=== PATIENT | male | born 1955 | race Caucasian/White ===

== ENCOUNTER → 2016-12-09 | Outpatient (CLI) | payer MEDICARE, MEDICAID ==
[~2016-12-09] MED LIST: ASPIRIN325 MG PO; COZAAR50 MG PO; CPAP; GLUCOPHAGE500 MG PO; LEVEMIR FL100 UNIT/1 SUB-Q; LIPITOR80 MG PO; LOPRESSOR25 MG PO; MAG-OX-400(241400 MG PO; NOVOLOG FL100 UNIT/1 SUB-Q; NOVOLOG100 UNIT/M SUB-Q; PLAVIX75 MG PO; TOPROL XL50 MG PO; ZESTRIL40 MG PO
[2016-12-09 10:57] LABS: ANION GAP 9.1 (10.0-19.0); BLOOD UREA NITROGEN 12 mg/dL (6-24); CHLORIDE 107 mMol/L (96-110); CO2 26 mMol/L (22-32); CREATININE 0.8 mg/dL (0.6-1.3); POTASSIUM 4.1 mMol/L (3.7-5.1); SODIUM 138 mMol/L (135-145)
== END | disposition disaster alternative care site (69) ==
LOC: GRAD 09:34 → GLAB 10:00 → GRAD 11:00
PROVIDERS: Specialist
DX: R47.01 Aphasia (principal); I67.89 Other cerebrovascular disease; R27.8 Other lack of coordination; R90.82 White matter disease, unspecified
CPT/HCPCS: A9577